=== PATIENT | male | born 2000 | race Caucasian/White ===

== ENCOUNTER 2022-06-09 07:05 | Day surgery (SDC) | payer MEDICAID, OTHER ==
[2022-06-09 07:32] LABS: BILIRUBIN,URINE NEGATIVE (NEGATIVE); CLARITY,URINE CLEAR (CLEAR); GLUCOSE, URINE (UA) NEGATIVE (NEGATIVE); KETONES,URINE (UA) NEGATIVE (NEGATIVE); LEUKOCYTE ESTERASE, URINE NEGATIVE (NEGATIVE); NITRITE,URINE NEGATIVE (NEGATIVE); OCCULT BLOOD,URINE NEGATIVE (NEGATIVE); PH,URINE 5.5 PH (5.0-7.5); PROTEIN,URINE TRACE mg/dL (NEGATIVE); UROBILINOGEN,URINE 0.2 (NORMAL) E.U./dL (NORMAL)
[2022-06-09 07:36] LABS: BASOPHILS # (AUTO) 0.1 10^3/uL (0.0-0.1); BASOPHILS % (AUTO) 0.4 %; EOSINOPHILS # (AUTO) 0.2 10^3/uL (0.0-0.7); EOSINOPHILS % (AUTO) 0.9 %; HCT - HEMATOCRIT 47.1 % (42.0-52.0); HGB - HEMOGLOBIN 15.9 g/dL (14.0-18.0); LYMPHOCYTES # (AUTO) 1.3 10^3/uL (1.5-3.5); LYMPHOCYTES % (AUTO) 6.8 %; MEAN CORPUSCULAR HEMOGLOBIN 29.2 pg (27.0-31.0); MEAN CORPUSCULAR HGB CONC 33.8 g/dL (32.0-36.0); MEAN CORPUSCULAR VOLUME 86.4 fL (80.0-94.0); MEAN PLATELET VOLUME 11.8 fL (7.4-11.4); MONOCYTES # (AUTO) 0.8 10^3/uL (0.0-1.0); MONOCYTES % (AUTO) 4.4 %; NEUTROPHILS # (AUTO) 16.7 10^3/uL (1.5-6.6); NEUTROPHILS % (AUTO) 87.2 %; PLT - PLATELET COUNT 218 10^3/uL (130-450); RED BLOOD COUNT 5.45 10^6/uL (4.70-6.10); RED CELL DISTRIBUTION WIDTH 12.3 % (12.0-15.0); WHITE BLOOD COUNT 19.2 x10^3/uL (4.8-10.8)
--- NOTE | 2022-06-09 07:41 | ED Physician Documentation ---
PD HPI ABD PAIN - Stated complaint Stated Complaint: ABD PX/NAUSEA - Chief complaint Chief Complaint: Abd Pain - History obtained from History obtained from: Patient - History of Present Illness Timing - onset: Yesterday Timing - duration: Days (2) Timing - details: Gradual onset, Still present Quality: Cramping, Aching, Pain Location: Periumbilical, RLQ (onset of lower mid abd pain, localizeing to RLQ and increasing into today, with nausea. No vomiting nor fever. Less appetite.) Radiation: No: Lower back, Right flank Improved by: Laying still. No: Eating, BM Worsened by: Moving, Palpation. No: Breathing Associated symptoms: Nausea, Loss of appetite. No: Fever, Vomiting, Diarrhea, Constipation, Dysuria, Chest pain Similar symptoms before: Has not had sx before Recently seen: Not recently seen Review of Systems Constitutional: denies: Fever, Chills Nose: denies: Rhinorrhea / runny nose, Congestion Throat: denies: Sore throat Respiratory: denies: Cough GI: reports: Abdominal Pain, Nausea. denies: Vomiting, Constipation, Diarrhea, Bloody / black stool : denies: Dysuria Neurologic: reports: Generalized weakness. denies: Near syncope Endocrine: denies: Weight loss PD PAST MEDICAL HISTORY - Past Medical History Cardiovascular: None Respiratory: None Endocrine/Autoimmune: None GI: None - Past Surgical History Past Surgical History: No - Present Medications Home Medications: Ambulatory Orders Medication Instructions Recorded Confirmed Docusate Sodium 250Mg Capsule 250 mg PO DAILY #10 cap 06/09/22 [Colace 250Mg Capsule] HYDROcod/ACETAM 5/325 [[place] 5/325] 1 each PO Q4H PRN #10 tablet 06/09/22 - Allergies Allergies/Adverse Reactions: Allergies Allergy/AdvReac Type Severity Reaction Status Date / Time No Known Drug Allergies Allergy Verified 06/09/22 07:13 - Living Situation Living Arrangement: reports: At home - Social History Does the pt smoke?: Yes Does the pt drink ETOH?: No Does the pt have substance abuse?: No PD ED PE NORMAL - Vitals Vital signs reviewed: Yes - General General: Alert and oriented X 3, Well developed/nourished, Other (appears uncomfortable/in pain. guarding RLQ with hands. ) - HEENT HEENT: Pharynx benign. No: Moist mucous membranes - Neck Neck: Supple, no meningeal sign, No adenopathy - Cardiac Cardiac: RRR, No murmur - Respiratory Respiratory: Clear bilaterally - Abdomen Abdomen: Soft, Non distended, Other (very tenderr to palpation and percussion RLQ with rebound. Also tender LLQ with reference also to right. No hernia.). No: Normal bowel sounds (decreased) - Male Male : Deferred - Rectal Rectal: Deferred - Back Back: No CVA TTP - Derm Derm: Normal color, Warm and dry Results - Vitals Vitals: Oxygen O2 Source Room air - Labs Labs: Laboratory Tests 06/09/22 06/09/22 06/09/22 07:22 07:25 07:25 WBC 19.2 H RBC 5.45 Hgb 15.9 Hct 47.1 MCV 86.4 MCH 29.2 MCHC 33.8 RDW 12.3 Plt Count 218 MPV 11.8 H Neut # (Auto) 16.7 H Lymph # (Auto) 1.3 L [place] # (Auto) 0.8 Eos # (Auto) 0.2 Baso # (Auto) 0.1 Absolute Nucleated RBC 0.00 Nucleated RBC % 0.0 Sodium 140 Potassium 4.3 Chloride 99 L Carbon Dioxide 29 Anion Gap 12.0 BUN 10 Creatinine 1.1 Estimated GFR (MDRD) 85 L Glucose 124 H Calcium 10.1 Total Bilirubin 0.6 AST 17 ALT 13 Alkaline Phosphatase 102 Total Protein 8.9 H Albumin 5.6 H Globulin 3.3 Albumin/Globulin Ratio 1.7 Lipase 31 Urine Color DARK YELLOW Urine Clarity CLEAR Urine pH 5.5 Ur Specific [place] >=1.030 H Urine Protein TRACE Urine Glucose (UA) NEGATIVE Urine Ketones NEGATIVE Urine Occult Blood NEGATIVE Urine Nitrite NEGATIVE Urine Bilirubin NEGATIVE Urine Urobilinogen 0.2 (NORMAL) Ur Leukocyte Esterase NEGATIVE Ur Microscopic Review NOT INDICATED Urine Culture Comments NOT INDICATED SARS-CoV-2 (PCR) 06/09/22 09:26 WBC RBC Hgb Hct MCV MCH MCHC RDW Plt Count MPV Neut # (Auto) Lymph # (Auto) [place] # (Auto) Eos # (Auto) Baso # (Auto) Absolute Nucleated RBC Nucleated RBC % Sodium Potassium Chloride Carbon Dioxide Anion Gap BUN Creatinine Estimated GFR (MDRD) Glucose Calcium Total Bilirubin AST ALT Alkaline Phosphatase Total Protein Albumin Globulin Albumin/Globulin Ratio Lipase Urine Color Urine Clarity Urine pH Ur Specific [place] Urine Protein Urine Glucose (UA) Urine Ketones Urine Occult Blood Urine Nitrite Urine Bilirubin Urine Urobilinogen Ur Leukocyte Esterase Ur Microscopic Review Urine Culture Comments SARS-CoV-2 (PCR) NOT DETECTED - Rads (name of study) abd/pelvic CT Radiology: Prelim report reviewed (acute appendicitis with width 1.7 cm, appendicolith, no abscess nor perforation. ), See rad report PD MEDICAL DECISION MAKING - ED course Complexity details: reviewed results, re-evaluated patient (he is much less pain after IV fluids and meds. core oven tender RLQ. ), considered differential (very concerning for appendicitis. ), d/w patient, d/w c consultant (Dr. Cotter, surgery) Departure - Departure Disposition: ED Transfer to [facility] Clinical Impression: Lower abdominal pain Acute appendicitis Qualifiers: Acute appendicitis type: with localized peritonitis Appendicitis gangrene presence: without gangrene Appendicitis perforation presence: without perforation Appendicitis abscess presence: without abscess Qualified Code(s): K35.30 - Acute appendicitis with localized peritonitis, without perforation or gangrene Condition: Stable Record reviewed to determine appropriate education?: Yes Discharge Date/Time: 06/09/22 11:41
[2022-06-09] MEDS ORDERED: SODIUM CHLORIDE 0.9% 1,000 ML IV STA ×2 (07:45→09:00)
[2022-06-09] MEDS ORDERED: ONDANSETRON 4 MG/2 ML VIAL IVP STA (07:45)
[2022-06-09] MEDS ORDERED: MORPHINE 2 MG/ML CARPUJECT IVP STA (07:45)
[2022-06-09 07:46] LABS: ALBUMIN 5.6 g/dL (3.2-5.5); ALBUMIN/GLOBULIN RATIO 1.7 (1.0-2.2); BILIRUBIN,TOTAL 0.6 mg/dL (0.2-1.0); CALCIUM 10.1 mg/dL (8.5-10.3); CREATININE 1.1 mg/dL (0.6-1.2); POTASSIUM 4.3 mmol/L (3.5-5.0); TOTAL PROTEIN 8.9 g/dL (6.7-8.2)
[2022-06-09] MEDS ORDERED: KETOROLAC 15 MG/ML VIAL IVP STA (07:49)
--- NOTE | 2022-06-09 08:44 | CT Report ---
PROCEDURE: Abdomen/Pelvis WO INDICATIONS: lower abd pain since yesterday, worsening TECHNIQUE: Noncontrast 5 mm thick sections acquired from the diaphragms to the symphysis. 5 mm coronal and sagi ttal reformats were then performed. For radiation dose reduction, the following was used: automated exposure control, adjustment of mA and/or kV according to patient size. COMPARISON: None. FINDINGS: The appendix is fluid-filled and markedly dilated up to 1.7 cm, with appendiceal wall thickening and surrounding fat stranding as well as some adjacent free fluid. There is hyperdense intraluminal mater ial within the base of the appendix consistent with appendicoliths. Remaining bowel normal. The unenh anced solid abdominal visceral structures demonstrate no acute finding. Lung bases clear. No signific ant osseous abnormality. IMPRESSION: Acute appendicitis. Reviewed by: Sebastián Wasserman MD on 06/09/2022 8:43 AM PDT Approved by: Sebastián Wasserman MD on 06/09/2022 8:43 AM PDT Station ID: [id number]
[2022-06-09] MEDS ORDERED: PIPERACILLIN/TAZOBACTAM 3.375 GM in SODIUM CHLORIDE 0.9% MINIBAG 100 ML IV STA (08:52)
[2022-06-09] MEDS ORDERED: BUPIVACAINE 0.5% PF 30 ML VIAL ONE (10:58)
--- NOTE | 2022-06-09 11:04 | ANESTHESIA ---
Pre-Anesthesia VS, & Labs - Diagnosis appendicitis - Procedure laparoscopic appendectomy Vital Signs: Temp Pulse Resp BP Pulse Ox 36.2 C L 54 L 16 122/55 L 99 06/09/22 07:14 06/09/22 09:29 06/09/22 09:29 06/09/22 09:29 06/09/22 09:29 Height: 5 ft 7 in Weight (kg): 51.256 kg Body Mass Index: 17.6 BMI Classification: Underweight - NPO >8 hours - Lab Results Current Lab Results: Laboratory Tests 06/09/22 07:25: Sodium 140, Potassium 4.3, Chloride 99 L, Carbon Dioxide 29, Anion Gap 12.0, BUN 10, Creatinine 1.1, Estimated GFR (MDRD) 85 L, Glucose 124 H , Calcium 10.1, Total Bilirubin 0.6, AST 17, ALT 13, Alkaline Phosphatase 102, Total Protein 8.9 H, Albumin 5.6 H, Globulin 3.3, Albumin/Globulin Ratio 1.7, L ipase 31 06/09/22 07:25: WBC 19.2 H, RBC 5.45, Hgb 15.9, Hct 47.1, MCV 86.4, MCH 29.2, MCHC 33.8, RDW 12.3, Plt Count 218, MPV 11.8 H, Neut # (Auto) 16.7 H, Lymph # (Auto) 1.3 L, [place] # (Auto) 0.8, Eos # (Auto) 0.2, Baso # (Auto) 0.1, Absolute Nucleated RBC 0.00, Nucleated RBC % 0.0 Fish Bones: 06/09/22 07:25 06/09/22 07:25 Home Medications and Allergies Home Medications: Ambulatory Orders No Known Home Medications 06/09/22 Active Medications Sodium Chloride (Normal Saline 0.9%) 1,000 mls @ 250 mls/hr IV .Q4H STA Stop: 06/09/22 12:59 Last Admin: 06/09/22 09:52 Dose: 250 mls/hr No Known Home Medications 06/09/22 Allergies/Adverse Reactions: Allergies Allergy/AdvReac Type Severity Reaction Status Date / Time No Known Drug Allergies Allergy Verified 06/09/22 07:13 Anes History & Medical History - Anesthetic History Anesthesia Complications: reports: No previous complications - Medical History Cardiovascular: reports: Other (bundle branch block per patient, cardiac workup in [place], no meds, no treatment, no symptoms) Smoking Status: Current every day smoker (THC) History of Cancer?: No - Surgical History Other Past Surgical History: circumcision at age 11 Exam General: Alert, Oriented x3 Dental: WNL Mouth Opening: Greater than 4 Fingerbreadths Neck Mobility: Normal Mallampati classification: II Respiratory: Lungs clear Cardiovascular: Regular rate Plan Anesthesia Type: General Consent for Procedure(s) Verified and Reviewed: Yes Code Status: Attempt Resuscitation ASA classification: 2-Mild systemic disease Is this case an emergency?: Yes
[2022-06-09] MEDS ORDERED: ePHEDrine 50 MG/ML VIAL IVP PRN (11:06)
[2022-06-09] MEDS ORDERED: ONDANSETRON 4 MG/2 ML VIAL IVP PRN ×2 (11:06→13:05)
[2022-06-09] MEDS ORDERED: MORPHINE 2 MG/ML CARPUJECT IVP PRN (11:06)
[2022-06-09] MEDS ORDERED: ATROPINE ABBOJECT 1 MG/10 ML SYRINGE IVP PRN (11:06)
[2022-06-09] MEDS ORDERED: NALOXONE 0.4 MG/ML VIAL IVP PRN (11:06)
[2022-06-09] MEDS ORDERED: METOCLOPRAMIDE 10 MG/2 ML VIAL IVP PRN (11:06)
[2022-06-09] MEDS ORDERED: HYDROmorphone 0.5 MG/0.5 ML SYRINGE IVP PRN ×2 (11:06→13:05)
[2022-06-09] MEDS ORDERED: fentaNYL 100 MCG/2 ML VIAL IVP PRN (11:06)
[2022-06-09] MEDS ORDERED: ONDANSETRON 4 MG/2 ML VIAL ONE (11:10)
[2022-06-09] MEDS ORDERED: DEXAMETHASONE 4 MG/ML VIAL ONE (11:10)
[2022-06-09] MEDS ORDERED: ROCURONIUM 50 MG/5 ML VIAL ONE (11:10)
[2022-06-09] MEDS ORDERED: PROPOFOL 200 MG/20 ML VIAL IVP ONE (11:10)
[2022-06-09] MEDS ORDERED: LIDOCAINE-MPF 2% 5 ML VIAL ONE (11:10)
[2022-06-09] MEDS ORDERED: MIDAZOLAM 2 MG/2 ML VIAL ONE (11:11)
[2022-06-09] MEDS ORDERED: fentaNYL 100 MCG/2 ML VIAL ONE ×2 (11:11→12:26)
[2022-06-09] MEDS ORDERED: LACTATED RINGERS 1,000 ML IV SCH (12:00)
[2022-06-09] MEDS ORDERED: BUPIVACAINE 0.5% PF 30 ML VIAL SUBQ ONE (12:07)
[2022-06-09] MEDS ORDERED: SUGAMMADEX 200 MG/2 ML VIAL IVP ONE (12:53)
[2022-06-09] MEDS ORDERED: HYDROcod/ACETAM 5/325 MG TABLET PO PRN (13:05)
[2022-06-09] MEDS ORDERED: LACTATED RINGERS 200 ML IV ONE (13:13)
--- NOTE | 2022-06-09 13:14 | OPERATIVE REPORT ---
Operative Report - General Procedure Date: 06/09/22 Planned Procedure: Laparoscopic appendectomy, possible open appendectomy Pre-Op Diagnosis: Acute appendicitis Procedure Performed: Laparoscopic appendectomy Post Op Diagnosis: Acute nonperforated appendicitis - Procedure Note Primary Surgeon: Mayco Smith MD Anesthesia Provider: Henny Duarte CRNA proctoring DOMINIK Vick Anesthesia Technique: General ET tube, Local (30 mL of half percent Marcaine) IV Fluids (mL): 800 Estimated Blood Loss (mL): 5 Drain/Tube Type: Other (None) Indications: Acute appendicitis by history and confirmed by lab studies and CT scan Findings: Thickened appendix without perforation Complications: None - Other Other Information/Narrative: After verbal and written informed consent was obtained detailing the operation, the alternatives to the operation including no operation, risks of infection, bleeding requiring transfusion with its risks, nerve injury, and and after I met with the patient confirming the surgery, the patient was brought to the operative suite and placed supine on the operating table. Great care was taken to avoid pressure points to prevent pressure necrosis or nerve injury. Monitoring devices were applied along with TEDs and pneumatic compressive stockings (to prevent DVT). The patient received preoperative antibiotics for surgical prophylaxis. DOMINIK Vick proctored by Henny Duarte CRNA sedated and anesthetized the patient for the entire procedure. The patient was prepped and draped in usual sterile manner. A "time in" then confirmed that the patient was identified with 3 identifiers (name, date, and medical record number), the history and physical was in the chart, the signed consent confirming the procedure was in the chart, the patient was in the correct position, the aforementioned prophylactic measures were in place were given, we had the correct personnel and equipment to complete the procedure and that anesthesia, and the surgical team was given an opportunity to express any concerns. With the agreement of everyone in the room, we proceeded with the operation. The initial incision was at the umbilicus and dissection to the linea alba was completed using blunt dissection. The linea alba was incised. In a similar manner the peritoneum was grasped and incised using Metzenbaum scissors. In this location, a 12 mm blunt tipped, balloon tipped port was placed and the balloon was inflated to keep the port in position. The abdominal cavity was insufflated with carbon dioxide to a steady-state pressure of 12 mmHg. 2 additional 5 mm ports were placed in standard locations for laparoscopic appendectomy (above and below the umbilicus at the midline) under direct vision of the 30 degree laparoscope and without incident. The patient was then placed in Trendelenburg position and was rotated slightly to their left. Examination of the right lower quadrant revealed a thickened and clearly infected/inflamed appendix with fibrinous exudate. Adhesions of the omentum to the appendix were freed using traction countertraction. The appendiceal mesentery was then grasped to avoid rupture of the appendix and the appendiceal mesentery was taken using sequential application of the LigaSure. Once the base of the appendix was encountered the appendix was transected using a laparoscopic ENEIDA stapler with a GI load that had been placed through the umbilical port and the camera was switched to a 5 mm camera and placed through one of the 5 mm ports. Examination of the staple line noted to be intact without leak or bleeding. A photograph was taken of the transected appendix. An Endopouch was placed through the umbilical port and the appendix was placed into the Endopouch and the Endopouch was secured. The left right lower quadrant was then copiously irrigated using 2 L of warm sterile saline. I injected the port sites at the peritoneal, fascial, and skin levels under direct vision with 0.25% Marcaine. All ports and the Endopouch containing the appendix were removed. Following appendiceal removal, the remaining carbon dioxide was expelled from the abdomen. The fascia the umbilicus was approximated using a [id number] 0 Vicryl suture. The skin at each port site was approximated using a subcuticular 4-0 Monocryl. The skin was cleaned of its prep and Dermabond was applied. At this point a "timeout" was performed that confirmed that all counts were correct, the procedure that was performed, the blood loss, the IV fluids administered, the patient's condition and any concerns of the operating team had. Dressings were then applied. Having tolerated the procedure well, the patient was extubated and taken to recovery room in good and stable condition. The plan is for outpatient discharge when the patient is adequately recovered. CPT 95377 This document was created in part using voice recognition technology. Because of the inherent limitations of the system, occasional same sounding word substitutions and grammatical errors do occur and persist despite proofreading. Please read this document for context.
[2022-06-09 14:35] VITALS: BP 120/62
--- NOTE | 2022-06-16 11:25 | ANESTHESIA POST OP EVALUATION ---
Anesthesia Post Eval - Post Anesthesia Eval Vitals: Last Vital Signs Temp 36.7 C 06/09/22 14:30 Pulse 48 L 06/09/22 14:30 Resp 14 06/09/22 14:30 BP 120/62 06/09/22 14:30 Pulse Ox 98 06/09/22 14:30 CV Function Including HR & BP: Stable Pain Control: Satisfactory Nausea & Vomiting: Negative Mental Status: Baseline Respiratory Status: Airway Patent Hydration Status: Satisfactory Anesthesia Complications: None
== END 2022-06-09 10:50 | disposition home or self-care (01) ==
LOC: ED 07:05 → SDS 10:49
PROVIDERS: ATTEND Surgery
PROC: 0DTJ4ZZ Resection of Appendix, Percutaneous Endoscopic Approach (ICD-10-PCS; principal; 2022-06-09 10:45)
DX: K35.30 Acute appendicitis with localized peritonitis, without perforation or gangrene (principal); Z20.822 Contact with and (suspected) exposure to COVID-19; R63.6 Underweight; Z68.1 Body mass index [BMI] 19.9 or less, adult
CPT/HCPCS: 36415; 44970; 74176; 80053; 81003; 83690; 85025; 87635; 93005; 96365; 96375; 99284; 99285; J7120; 81001; 87086

== ENCOUNTER 2022-08-18 16:23 | Outpatient (CLI) | payer MEDICAID ==
[2022-08-18 20:02] LABS: BASOPHILS # (AUTO) 0.1 10^3/uL (0.0-0.1); BASOPHILS % (AUTO) 1.1 %; EOSINOPHILS # (AUTO) 0.8 10^3/uL (0.0-0.7); EOSINOPHILS % (AUTO) 11.4 %; HCT - HEMATOCRIT 42.5 % (42.0-52.0); HGB - HEMOGLOBIN 14.4 g/dL (14.0-18.0); LYMPHOCYTES # (AUTO) 1.9 10^3/uL (1.5-3.5); LYMPHOCYTES % (AUTO) 28.6 %; MEAN CORPUSCULAR HEMOGLOBIN 28.6 pg (27.0-31.0); MEAN CORPUSCULAR HGB CONC 33.9 g/dL (32.0-36.0); MEAN CORPUSCULAR VOLUME 84.5 fL (80.0-94.0); MONOCYTES # (AUTO) 0.4 10^3/uL (0.0-1.0); MONOCYTES % (AUTO) 5.9 %; NEUTROPHILS # (AUTO) 3.5 10^3/uL (1.5-6.6); NEUTROPHILS % (AUTO) 52.8 %; PLT - PLATELET COUNT 253 10^3/uL (130-450); RED BLOOD COUNT 5.03 10^6/uL (4.70-6.10); RED CELL DISTRIBUTION WIDTH 12.3 % (12.0-15.0); WHITE BLOOD COUNT 6.6 x10^3/uL (4.8-10.8)
[2022-08-18 20:19] LABS: ALBUMIN/GLOBULIN RATIO 1.5 (1.0-2.2); ALKALINE PHOSPHATASE 107 IU/L (42-121); ALT ALANINE AMINOTRANSFERASE 18 IU/L (10-60); AST ASPARTATE AMINOTRANSFERASE 18 IU/L (10-42); BILIRUBIN,TOTAL 0.5 mg/dL (0.2-1.0); BUN - BLOOD UREA NITROGEN 7 mg/dL (6-20); CALCIUM 9.9 mg/dL (8.5-10.3); CARBON DIOXIDE - CO2 32 mmol/L (21-32); CHLORIDE 102 mmol/L (101-111); CREATININE 0.9 mg/dL (0.6-1.2); GFR - MDRD 107 (>89); GLUCOSE 85 mg/dL (70-100); POTASSIUM 4.1 mmol/L (3.5-5.0); SODIUM 139 mmol/L (135-145); TOTAL PROTEIN 8.4 g/dL (6.7-8.2)
[2022-08-18 20:22] LABS: CREATINE KINASE MB 1.5 ng/mL (0.6-6.3); CRP - C-REACTIVE PROTEIN < 1.0 mg/dL (0-1.0)
[2022-08-18 20:24] LABS: TROPONIN I HIGH SENSITIVITY 3.5 ng/L (2.3-19.7)
[2022-08-18 20:32] LABS: THYROID STIMULATING HORMONE 1.12 uIU/mL (0.34-5.60)
[2022-08-18 20:42] LABS: ESTIMATED AVERAGE GLUCOSE 103 mg/dL (70-100); HEMOGLOBIN A1c% 5.2 % (4.27-6.07)
== END 2022-08-18 16:24 | disposition home or self-care (01) ==
LOC: LAB.N 16:23
PROVIDERS: ATTEND Registered Nurse
DX: R07.89 Other chest pain (principal); R94.31 Abnormal electrocardiogram [ECG] [EKG]
CPT/HCPCS: 36415; 80053; 82553; 83036; 84443; 84484; 85025; 86140

== ENCOUNTER 2022-08-18 16:32 | Outpatient (CLI) | payer MEDICAID ==
--- NOTE | 2022-08-19 20:59 | XRAY Report ---
PROCEDURE: Chest 2 View X-Ray INDICATIONS: ABNORMAL CHEST PX AND EKG TECHNIQUE: 2 view(s) of the chest. COMPARISON: None. FINDINGS: Surgical changes and devices: None. Lungs and pleura: No pleural effusions or pneumothorax. Lungs are clear. Mediastinum: Mediastinal contours are normal. Heart size is normal. Bones and chest wall: No suspicious bony abnormalities. Soft tissues appear unremarkable. IMPRESSION: No acute cardiopulmonary pathology. Reviewed by: Sachin Bernard MD on 08/19/2022 8:58 PM [facility] Approved by: Sachin Bernard MD on 08/19/2022 8:58 PM [facility] Station ID: [id number]
== END 2022-08-18 16:33 | disposition home or self-care (01) ==
LOC: DI.N 16:32
PROVIDERS: ATTEND Registered Nurse
DX: R07.89 Other chest pain (principal); R94.31 Abnormal electrocardiogram [ECG] [EKG]
CPT/HCPCS: 36415; 80053; 82553; 83036; 84443; 84484; 85025; 86140

== ENCOUNTER 2024-05-18 18:41 | Outpatient (CLI) | payer MEDICAID | END 2024-05-18 18:42 | disposition EMS.NT | LOC: EMS 18:41 | DX: S01.111A Laceration without foreign body of right eyelid and periocular area, initial encounter (principal); Y04.2XXA Assault by strike against or bumped into by another person, initial encounter ==

== ENCOUNTER 2024-05-20 10:33 | Emergency (ER) | payer MEDICAID, OTHER ==
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
--- NOTE | 2024-05-20 14:00 | CT Report ---
PROCEDURE: Head WO INDICATIONS: head trauma, positive gilliland sign TECHNIQUE: Noncontrast 4.5 mm thick angled axial sections acquired from the foramen magnum to the vertex. For r adiation dose reduction, the following was used: automated exposure control, adjustment of mA and/or kV according to patient size. COMPARISON: None. FINDINGS: Image quality: Excellent. CSF spaces: Basal cisterns are patent. No extra-axial fluid collections. Ventricles are normal in size and shape. Brain: No midline shift. No intracranial masses or hemorrhage. Wallace-white matter interface is norm al. Skull and face: Calvarium and visualized facial bones are intact, without suspicious lesions. Sinuses: Visualized sinuses and mastoids are clear. IMPRESSION: No acute intracranial pathology. Reviewed by: Sania Thorne MD on 05/20/2024 12:58 PM [facility] Approved by: Sania Thorne MD on 05/20/2024 12:58 PM [facility] Station ID: [id number]
[2024-05-20 14:58] VITALS: BP 118/60; O2SAT 100
== END 2024-05-20 14:54 | disposition home or self-care (01) ==
LOC: ED 10:33
DX: S06.0X0A Concussion without loss of consciousness, initial encounter (principal); Y04.8XXA Assault by other bodily force, initial encounter
CPT/HCPCS: 99283; 99284